=== PATIENT | male | born 1980 | race Caucasian/White ===

== ENCOUNTER → 2019-03-03 | Day surgery (SDC) | payer BC ==
[2019-03-01 10:57] LABS: BASOPHILS % 0.5 % (0.0-1.0); EOSINOPHILS # (AUTO) 0.7 (0.0-0.4); EOSINOPHILS % 10.1 % (0.0-6.0); HEMATOCRIT 44.6 % (38.2-49.6); HEMOGLOBIN 15.2 g/dL (14.0-18.0); LYMPHOCYTES # (AUTO) 1.5 (1.0-3.2); LYMPHOCYTES % 23.4 % (18.0-39.1); MEAN CORPUSCULAR HEMOGLOBIN 28.7 pg (28-32); MEAN CORPUSCULAR HGB CONC 34.1 g/dL (31-35); MEAN CORPUSCULAR VOLUME 84.2 fL (81-99); MONOCYTES # (AUTO) 0.5 (0.2-0.8); MONOCYTES % 7.3 % (4.4-11.3); NEUTROPHILS # (AUTO) 3.8 (2.1-6.9); NEUTROPHILS % 58.4 % (38.7-80.0); PLATELET COUNT 246 x10e3/uL (140-360); RED CELL DISTRIBUTION WIDTH 13.1 % (11.7-14.4)
[2019-03-01 11:14] LABS: ALANINE AMINOTRANSFERASE 27 IU/L (0-55); ALBUMIN 3.9 g/dL (3.5-5.0); ALBUMIN/GLOBULIN RATIO 1.3 (0.8-2.0); ALKALINE PHOSPHATASE 85 IU/L (40-150); ANION GAP 10.6 mmol/L (8-16); BLOOD UREA NITROGEN 17 mg/dL (7-26); BUN/CREATININE RATIO 18 (6-25); CALCIUM 9.8 mg/dL (8.4-10.2); CARBON DIOXIDE 27 mmol/L (22-29); CHLORIDE 105 mmol/L (98-107); CREATININE, SERUM 0.97 mg/dL (0.72-1.25); EST GLOMERULAR FILTRATION RATE > 60 ML/MIN (60-); GLUCOSE 147 mg/dL (74-118); POTASSIUM 4.6 mmol/L (3.5-5.1); SODIUM 138 mmol/L (136-145)
[~2019-03-03] VITALS: Ht 175.3 cm; Wt 93.0 kg
[~2019-03-03] MED LIST: ALPRAZOLAM 0.5 MG TAB ONE; ASPIRIN325 MG PO; CRESTOR10 MG PO; DIPHENHYDRAMINE HCL 25 MG CAP ONE; FENTANYL CITRATE/PF 100MCG/2 ML INJ ONE; HEPARIN SOD (PORCINE) 1000 UNIT/ML 30ML ONE; HEPARIN SOD/SOD CHLORIDE 2,000 ML ONE; IOPAMIDOL 370 MG/ML 200 ML INFUS..BTL INJ ONE; LIDOCAINE HCL 2% LOCAL 20 ML VIAL ONE; MIDAZOLAM HCL 2 MG/2 ML VIAL ONE; NOVOLOG100 UNITS1 SC; PROAIR HFA INH8.5 GM INH; SODIUM CHLORIDE 0.9% 1000ML 1,000 ML ONE; SYNTHROID125 MCG PO; VASOTEC5 MG PO; VERAPAMIL HCL 2.5 MG/ML 2 ML VIAL ONE; VITAMIN D250000 UNIT PO; ZYRTEC10 MG PO
[2019-03-03 11:43] VITALS: BP 127/83
[2019-03-03 15:30] VITALS: BP 102/56
--- NOTE | 2019-03-03 15:30 | NUR ---
bedside report received from Redd Niño RN. Alert oriented and appropriate, PERRLA, respirations even and unlabored to room air. Pulses strong. TR band to right wrist 10ml . Cap fill brisk < 3 sec. + Neurovascular function present Skin warm and dry integrity appears intact. IV 20g to right hand presents healthy w/o s/s of infiltration or complaint. Abdomen soft and supple. pt offered toileting, denies need to urinate or defecate. No personal affects with patient. Family to bedside. Pt and family verbalizes understanding of POC for DC. Patient to bedside monitor. Currently w/o complaint of pain or need. patient instructed use of call light, and TR band precautions. Bed low and locked, side rails up x2 , call light within reach-cgf
[2019-03-03 15:45] VITALS: BP 104/74
[2019-03-03 16:00] VITALS: BP 104/60
--- NOTE | 2019-03-03 16:00 | NUR ---
Dr Gamez to see patient at bedside
[2019-03-03 16:30] VITALS: BP 104/56
[2019-03-03 17:00] VITALS: BP 104/60
--- NOTE | 2019-03-03 17:15 | NUR ---
Pt meets DC criteria. right radial assessed for s/s of complication and presence of hematoma. overall skin warm, dry, no discolor, and pulses present. IV removed from left hand. Distal tip appears intact. VS WNL throughout TR band removal process . Pt denies pain, sob, or need at this time. Family at bedside. Review of discharge paperwork and follow up instructions. Work release provided on request. verbalized understanding of right hand precautions and limitations. Pt to wheelchair and transported to front of hospital. Transferred to private vehicle under own strength w/o incident with DC paperwork in hand. - cgf
--- NOTE | 2019-03-04 16:54 | Operative Report ---
DATE OF PROCEDURE: 03/03/2019 SURGEON: Valente Gamez MD INDICATIONS: Coronary artery disease, abnormal stress test. PROCEDURES PERFORMED: 1. Left heart catheterization, selective coronary angiography. 2. Deployment of right wrist TR band. COMPLICATIONS: None. RECOMMENDATIONS: Medical therapy. DESCRIPTION OF PROCEDURE: Access obtained in the right radial artery. A 5-[place] sheath was placed. Coronary angiography demonstrated no angiographic coronary artery disease. Excellent flow in all arteries. LV end-diastolic pressure of 10. No gradient across aortic valve on pullback. Right wrist TR band applied. The patient discharged home same day. Valente Gamez MD [facility]/MODL /[id number]
== END | disposition home or self-care (01) ==
LOC: CATH LAB 10:10 → EDBD 14:00
PROVIDERS: ATTEND Internal Medicine Interventional Cardiology
DX: I25.10 Atherosclerotic heart disease of native coronary artery without angina pectoris (principal); R94.39 Abnormal result of other cardiovascular function study; E10.8 Type 1 diabetes mellitus with unspecified complications; Z88.6 Allergy status to analgesic agent; Z01.812 Encounter for preprocedural laboratory examination; Z79.82 Long term (current) use of aspirin; Z79.4 Long term (current) use of insulin; Z68.31 Body mass index [BMI] 31.0-31.9, adult; Z82.49 Family history of ischemic heart disease and other diseases of the circulatory system
CPT/HCPCS: 36415; 80053; 85025; 93458; C1769; C1887; J1644; J2001; J2250; J3010; J7030; Q9967